=== PATIENT | male | born 1990 ===

== ENCOUNTER 2018-08-20 20:05 | Emergency (ER) | payer MEDICARE, MEDICAID ==
--- NOTE | 2018-08-20 21:47 | ED PDOC ---
HPI: Chest Pain Time Seen by Provider: 08/20/18 20:17 Chief Complaint (Nursing): Chest Pain Chief Complaint (Provider): Chest Pain History Per: Patient History/Exam Limitations: no limitations Onset/Duration Of Symptoms: Days Current Symptoms Are (Timing): Still Present Additional Complaint(s): 27 y/o male presents to the ED complaining of chest pain, onset earlier today. Patient reports chest pain is intermittent and located on the substernal left side. Patient reports pain is worse with palpation. Patient additionally admits to using heroine daily including snorting 4 bags today. Patient is excessively lethargic. History may be unreliable due to intoxication. Patient was seen at [facility] earlier today for the same problem but reports he was discharged after his workup. Denies cough and dyspnea. Past Medical History Reviewed: Historical Data, Nursing Documentation, Vital Signs Vital Signs: Last Vital Signs Temp 97.9 F 08/20/18 21:49 Pulse 85 08/20/18 22:53 Resp 18 08/20/18 21:49 BP 127/74 08/20/18 21:49 Pulse Ox 99 08/20/18 22:53 - Medical History PMH: Anxiety, HTN - Surgical History Surgical History: No Surg Hx - Family History Family History: States: Unknown Family Hx, CAD (maternal grandmother) - Social History Current smoker - smoking cessation education provided: Yes Drugs: Other (Heroine) - Immunization History Hx Tetanus Toxoid Vaccination: No Hx Influenza Vaccination: Yes Hx Pneumococcal Vaccination: Yes - Home Medications Home Medications: Ambulatory Orders Medication Instructions Recorded Ibuprofen [Motrin Tab] 600 mg PO Q8 PRN #30 tab 08/20/18 - Allergies Allergies/Adverse Reactions: Allergies Allergy/AdvReac Type Severity Reaction Status Date / Time No Known Allergies Allergy Verified 08/20/18 12:31 Review of Systems ROS Statement: Except As Marked, All Systems Reviewed And Found Negative Cardiovascular: Positive for: Chest Pain Respiratory: Negative for: Cough, Other (Dyspnea) Physical Exam - Physical Exam Appears: Positive for: No Acute Distress (sleepy) Eye Exam: Positive for: EOMI, PERRL, Conjunctival injection ENT: Positive for: Other (Dry mucous membranes) Cardiovascular/Chest: Negative for: Chest Non Tender (Mild tenderness to palpation of the midsternum and left sternal border. No crepidous ) Respiratory: Positive for: Normal Breath Sounds. Negative for: Respiratory Distress - ECG ECG Rhythm: Positive for: Normal QRS, Normal ST Segment, Sinus Rhythm Rate: 85 O2 Sat by Pulse Oximetry: 99 (RA) Medical Decision Making Medical Decision Making: Time: 2043 Impression: Chest wall tenderness and heroin abuse Plan: -- EKG -- Alcohol Serum -- Troponin I -- Motrin 600 mg PO -- Molecular Modeler -- Reviewed workup at [facility]. Patient had a negative D Dimer, negative Troponin I and normal CXR. According to the chart, patient eloped from the ER. Scribe Attestation: Documented by Aly Iraheta acting as a scribe for Cristiane Khan MD. Provider Scribe Attestation: All medical record entries made by the Scribe were at my direction and personally dictated by me. I have reviewed the chart and agree that the record accurately reflects my personal performance of the history, physical exam, medical decision making, and the department course for this patient. I have also personally directed, reviewed, and agree with the discharge instructions and disposition. Disposition - Clinical Impression Clinical Impression: Chest pain, Opiate dependence Doctor Will See Patient In The: ED Counseled Patient/Family Regarding: Studies Performed, Diagnosis - Disposition Referrals: [facility] [Outside] (FOLLOW UP WITH YOUR DOCTOR OR CLINIC IN 1-2 DAYS FOR FURTHER EVALUATION) Disposition: Routine/Home Disposition Time: 22:53 Condition: STABLE Prescriptions: Ibuprofen [Motrin Tab] 600 mg PO Q8 PRN #30 tab PRN Reason: Pain, Moderate (4-7) Instructions: Drug Abuse and Drug Addiction (DC), Costochondritis (DC)
[2018-08-20 21:49] VITALS: RESP 18
[2018-08-20 23:07] VITALS: BP 109/65; PULSE 72; TEMP 98.2; O2SAT 97
--- NOTE | 2018-08-21 07:53 | CARD ---
APPROVED REPORT Date of service: 08/20/2018 EKG Measurement Heart [id number] <Conclusion> Normal sinus rhythm Normal ECG
== END 2018-08-20 23:25 | disposition home or self-care (01) ==
LOC: H.ER 20:05
DX: R07.9 Chest pain, unspecified (principal); F11.20 Opioid dependence, uncomplicated; F17.200 Nicotine dependence, unspecified, uncomplicated; I10 Essential (primary) hypertension; Z82.49 Family history of ischemic heart disease and other diseases of the circulatory system
CPT/HCPCS: 84484; 93005; 99283; G0480

== ENCOUNTER 2019-03-06 23:08 | Emergency (ER) | payer MEDICARE, MEDICAID ==
[2019-03-06 23:10] VITALS: BMI 19.8
[2019-03-06 23:11] VITALS: RESP 18
--- NOTE | 2019-03-07 02:01 | ED PDOC ---
HPI: Psych/Substance Abuse Time Seen by Provider: 03/06/19 23:59 Chief Complaint (Nursing): Medical Clearance Chief Complaint (Provider): clearance for incarceration Additional Complaint(s): 28 y/o M with hx of polysubstance abuse who was brought in by [facility] for medical and psych clearance for incarceration. Patient states that he used 4 bags of heroine today, which is about usual for him. He last used about 4 hours ago and is having some nausea. Denies abdominal discomfort, diarrhea, LOC, dizziness, head trauma. Further denies hx of psychiatric illness, SI/HI, auditory or visual hallucination. Past Medical History Vital Signs: Last Vital Signs Temp 99.0 F 03/06/19 23:10 Pulse 73 03/06/19 23:10 Resp 18 03/06/19 23:10 BP 119/84 03/06/19 23:10 Pulse Ox 99 03/06/19 23:10 - Medical History PMH: Anxiety, HTN - Family History Family History: States: Unknown Family Hx, CAD (maternal grandmother) - Immunization History Hx Tetanus Toxoid Vaccination: No Hx Influenza Vaccination: Yes Hx Pneumococcal Vaccination: Yes - Home Medications Home Medications: Ambulatory Orders Medication Instructions Recorded No Known Home Med 11/06/18 - Allergies Allergies/Adverse Reactions: Allergies Allergy/AdvReac Type Severity Reaction Status Date / Time No Known Allergies Allergy Verified 03/06/19 23:26 Review of Systems Gastrointestinal: Positive for: Nausea. Negative for: Vomiting, Abdominal Pain Neurological: Negative for: Change in Speech, Confusion, Altered Mental Status, Dizziness Psych: Negative for: Depression, Psychosis, Suicidal ideation Physical Exam - Reviewed Nursing Documentation Reviewed: Yes Vital Signs Reviewed: Yes - Physical Exam Appears: Positive for: Non-toxic Eye Exam: Positive for: Normal appearance, EOMI, PERRL Cardiovascular/Chest: Positive for: Regular Rate, Rhythm Respiratory: Positive for: Normal Breath Sounds Gastrointestinal/Abdominal: Positive for: Normal Exam Neurological/Psych: Positive for: Awake, Alert, Oriented, Mood/Affect (appropriate). Negative for: Facial Droop - ECG O2 Sat by Pulse Oximetry: 99 Medical Decision Making Medical Decision Making: Crisis evaluation Zofran ODT 4mg Seen by structural iron worker. Pt cleared psychiatrically for incarceration. Pt medically stable for incarceration. Disposition - Clinical Impression Clinical Impression: Opiate abuse, continuous - Patient ED Disposition Is Patient to be Admitted: No - Disposition Referrals: [facility] [Outside] Disposition: Discharged/Transfer to Law Enforcement Disposition Time: 04:14 Condition: STABLE Additional Instructions: You are medically and psychiatrically stable for incarceration. Instructions: Drug Abuse and Drug Addiction (DC) Forms: [facility] (Honduran) Print Language: IRISH
[2019-03-07 04:15] VITALS: BP 126/86; PULSE 78; TEMP 98.8
[2019-03-07 06:48] VITALS: O2SAT 99
== END 2019-03-07 04:14 ==
LOC: H.ER 23:08
DX: F11.10 Opioid abuse, uncomplicated (principal); F41.9 Anxiety disorder, unspecified; I10 Essential (primary) hypertension